=== PATIENT | female | born 1970 | race American Indian/Alaskan Native ===

== ENCOUNTER 2017-06-23 06:37 | Day surgery (SDC) | payer OTHER ==
[2017-06-23] MEDS ORDERED: DIPRIVAN 10 MG/ML IV ONE ×2 (07:56→10:18)
--- NOTE | 2017-06-23 08:32 | Anesthesia Day of Surgery ---
Anesthesia Day of Surgery - Day of Surgery Patient Examined: Yes Patient H&P Reviewed: Yes Patient is NPO: Yes
--- NOTE | 2017-06-23 08:32 | Anesthesia Consultation ---
Anesthesia Consult and Med Hx Date of service: 06/23/17 - Airway Anesthetic Teeth Evaluation: Poor (loose tooth Lower Lt canine) ROM Head & Neck: Adequate Mental/Hyoid Distance: Adequate Mallampati Class: Class II Intubation Access Assessment: Probably Good - Pulmonary Exam CTA: Yes - Cardiac Exam Cardiac Exam: RRR - Pre-Operative Health Status ASA Pre-Surgery Classification: ASA3 Proposed Anesthetic Plan: MAC - Pulmonary Hx Smoking: No Hx Sleep Apnea: No (R/O) - Central Nervous System Hx Psychiatric Problems: No - Hematic Hx Anemia: Yes Hx Sickle Cell Disease: Yes (TRAIT) - Other Systems Hx Alcohol Use: No Hx Substance Use: No Hx Cancer: No Hx Obesity: Yes - Additional Comments Anesthesia Medical History Comments: NAC
[2017-06-23] MEDS ORDERED: PEPCID IV ONE (08:42)
[2017-06-23] MEDS ORDERED: NACL 0.9% 1000 ML 1,000 ML IV SCH (09:00)
--- NOTE | 2017-06-23 10:05 | Discharge Summary ---
Providers - Providers Date of discharge: 06/23/17 Attending physician: HIREN LAZAR Hospitalization Condition: Good Procedures: EGD Disposition: DC-01 TO HOME OR SELFCARE Core Measure Documentation - Palliative Care Palliative Care/ Comfort Measures: Not Applicable - Core Measures Any of the following diagnoses?: none Exam - Physical Exam Narrative exam: UNCHANGED FROM PRE-OP EXAM - Constitutional Vitals: Temp Pulse Resp BP Pulse Ox 99.3 F 85 26 H 126/79 97 06/23/17 08:39 06/23/17 08:39 06/23/17 08:39 06/23/17 08:39 06/23/17 08:39 Plan Activity: no restrictions Diet: regular
--- NOTE | 2017-06-23 10:10 | Operative Report ---
Operative Report Operative Report: OPERATIVE REPORT - EGD DATE 06/23/17 SURGERY: Upper endoscopy. SURGEON: Michelle Coello M.D. SCHO[employer]GE TEACHER: Idalmis Lay MD PRE OP DX: dyspepsia POST OP DX: hiatal hernia TYPE OF ANESTHESIA: MAC. ESTIMATED BLOOD LOSS: None. COMPLICATIONS: None. SPECIMENS REMOVED: None. FINDINGS: 1. Small hiatal hernia. 2. Otherwise, normal esophagus, stomach and first portion of duodenum. INDICATIONS:INDICATION FOR PROCEDURE: Patient is a 46-year-old female with a long history of morbid obesity. She is planned to have a weight loss procedure and is here for preoperative planning EGD. PROCEDURE DETAILS: After consent was reviewed, patient was taken back to the operating room where patient was placed in the left lateral decubitus position and a bite block was placed in the mouth. After a time-out was called, MAC anesthesia was initiated. I then passed the endoscope into her oropharynx, into her esophagus, visualized the entire esophagus, which was all within normal limits. I then visualized the stomach and the first portion of the duodenum and there were no abnormalities I could clearly visualize. I then retroflexed the scope in the stomach and visualized the hiatus and I could see a small hiatal hernia. I then desufflated the stomach and removed the endoscope. Patient tolerated procedure well and was transferred to recovery room in good and stable condition.
[2017-06-23 10:46] VITALS: BP 121/74
--- NOTE | 2017-06-23 11:57 | Post Anesthesia Evaluation ---
- Post Anesthesia Evaluation Patient Participated: Yes Airway Patent: Yes Stable Respiratory Function: Yes Nausea/Vomiting: No Temp > 96.8F: Yes Pain Manageable: Yes Adequeate Hydration: Yes Anesthesia Complications: No Block Receding Appropriately: Not Applicable Patient on Ventilator: No
== END 2017-06-23 06:38 | disposition home or self-care (01) ==
LOC: GIO 06:37
PROVIDERS: ATTEND Surgery
DX: K30 Functional dyspepsia (principal); F41.9 Anxiety disorder, unspecified; K44.9 Diaphragmatic hernia without obstruction or gangrene; I10 Essential (primary) hypertension; K21.9 Gastro-esophageal reflux disease without esophagitis; E66.01 Morbid (severe) obesity due to excess calories; Z68.44 Body mass index [BMI] 60.0-69.9, adult; Z98.890 Other specified postprocedural states; Z98.84 Bariatric surgery status; Z82.49 Family history of ischemic heart disease and other diseases of the circulatory system; Z79.899 Other long term (current) drug therapy
CPT/HCPCS: 43235; 81025; J2704; J7030

== ENCOUNTER 2017-06-26 06:04 | Inpatient (IN) | payer OTHER ==
[~2017-06-26 06:04] MED LIST: TRANSDERM-SCOP TD NR
[2017-06-26] MEDS ORDERED: NACL BACTERIOSTATIC INFILTRATI ONE (06:28)
[2017-06-26] MEDS ORDERED: DIPRIVAN 10 MG/ML IV ONE (06:59)
[2017-06-26] MEDS ORDERED: VERSED IV NR (07:00)
[2017-06-26] MEDS ORDERED: SUBLIMAZE ONE (07:00)
[2017-06-26] MEDS ORDERED: PEPCID IV NR (07:00)
[2017-06-26] MEDS ORDERED: NACL 0.9% 1000 ML 1,000 ML IV SCH (07:00)
[2017-06-26] MEDS ORDERED: XYLOCAINE MPF 2% ONE (07:03)
[2017-06-26] MEDS ORDERED: QUELICIN ONE (07:03)
[2017-06-26] MEDS ORDERED: ZEMURON IV ONE ×2 (07:04→10:21)
[2017-06-26] MEDS ORDERED: ZOFRAN ONE (07:04)
[2017-06-26] MEDS ORDERED: ADRENALIN ONE (07:15)
[2017-06-26] MEDS ORDERED: XYLOCAINE 1% MPF 5 mL ONE (07:15)
[2017-06-26] MEDS ORDERED: MARCAINE 0.5% 30 ML INFILTRATI ONE (07:15)
[2017-06-26 07:16] LABS: Hematocrit 28.3 % (30.3-42.9); Hemoglobin 9.7 gm/dl (10.1-14.3); Mean Corpuscular HGB Conc 34 % (30-34); Mean Corpuscular Hemoglobin 26 pg (28-32); Mean Corpuscular Volume 77 fl (79-97); Platelet Count 312 K/mm3 (140-440); Red Blood Count 3.66 M/mm3 (3.65-5.03); Red Cell Distribution Width 17.4 % (13.2-15.2); White Blood Count 10.9 K/mm3 (4.5-11.0)
--- NOTE | 2017-06-26 07:20 | Anesthesia Day of Surgery ---
Anesthesia Day of Surgery - Day of Surgery Patient Examined: Yes Patient is NPO: Yes Beta Blockers: No (n/a)
[2017-06-26] MEDS ORDERED: ZOFRAN IV PRN ×2 (07:21→08:00)
--- NOTE | 2017-06-26 07:21 | Anesthesia Consultation ---
Anesthesia Consult and Med Hx Date of service: 06/26/17 - Airway Anesthetic Teeth Evaluation: Good ROM Head & Neck: Adequate Mental/Hyoid Distance: Adequate Mallampati Class: Class II Intubation Access Assessment: Probably Good - Pulmonary Exam CTA: Yes - Cardiac Exam Cardiac Exam: RRR - Pre-Operative Health Status ASA Pre-Surgery Classification: ASA3 Proposed Anesthetic Plan: General - Pulmonary Hx Smoking: No Hx Sleep Apnea: No - Cardiovascular System Hx Hypertension: No - Central Nervous System Hx Psychiatric Problems: No - Endocrine Hx Non-Insulin Dependent Diabetes: No - Hematic Hx Anemia: Yes Hx Sickle Cell Disease: Yes (TRAIT) - Other Systems Hx Alcohol Use: No Hx Substance Use: No Hx Cancer: No Hx Obesity: Yes (morbid, BMI 64)
[2017-06-26 07:29] LABS: Alanine Aminotransferase 7 units/L (7-56); Albumin 3.8 g/dL (3.9-5); Albumin/Globulin Ratio 0.9 %; Alkaline Phosphatase 119 units/L (35-129); Anion Gap 19 mmol/L; BUN/Creatinine Ratio 10; Blood Urea Nitrogen 7 mg/dL (7-17); Calcium 8.2 mg/dL (8.4-10.2); Carbon Dioxide 22 mmol/L (22-30); Chloride 100.6 mmol/L (98-107); Glucose 85 mg/dL (65-100); Potassium 3.9 mmol/L (3.6-5.0); Sodium 138 mmol/L (137-145); Total Protein 8.2 g/dL (6.3-8.2)
[2017-06-26 07:35] LABS: Bacteria,Urine 1+ /HPF (Negative); Bilirubin,Urine NEG (Negative); Blood,Urine LG (Negative); Ketones,Urine 80 mg/dL (Negative); Leukocyte Esterase,Urine NEG (Negative); Mucus,Urine FEW /HPF; Nitrite,Urine NEG (Negative)
[2017-06-26] MEDS ORDERED: WATER FOR IRRIG STERILE IR ONE (07:35)
[2017-06-26 07:36] LABS: RBC,Urine > 182.0 /HPF (0.0-6.0)
[2017-06-26] MEDS ORDERED: DILAUDID IV PRN (08:00)
[2017-06-26] MEDS ORDERED: ANCEF/STERILE WATER 2 GM/20 ML IV NR (08:00)
[2017-06-26] MEDS ORDERED: APRESOLINE IV PRN (08:00)
[2017-06-26] MEDS ORDERED: FLAGYL 500 MG/100 ML 500 MG/100 ML BAG IV NR (08:00)
[2017-06-26] MEDS ORDERED: REGLAN IV PRN (08:00)
[2017-06-26] MEDS ORDERED: MYLICON PO PRN (08:00)
[2017-06-26] MEDS ORDERED: LOVENOX SUB-Q NR (08:00)
[2017-06-26] MEDS ORDERED: ANCEF/NS 1 GM/50 ML 1 GM/50 ML BAG IV SCH (08:00)
[2017-06-26] MEDS ORDERED: XYLOCAINE 1% 20 mL INFILTRATI ONE (08:25)
[2017-06-26] MEDS ORDERED: ADRENALIN IV ONE (08:25)
[2017-06-26] MEDS ORDERED: NACL 0.9% IR ONE ×2 (08:25)
[2017-06-26] MEDS ORDERED: MARCAINE 0.5% INFILTRATI ONE (08:25)
[2017-06-26 08:27] LABS: Anisocytosis 1+; Basophils % (Manual) 0 % (0.0-1.8); Blastocytes % (Manual) 0 %; Diff Status Complete; Hypochromasia 1+; Platelet Estimate Consistent w Auto; Schistocytes Rare
[2017-06-26] MEDS ORDERED: NACL 0.9% 1000 ML 1,000 ML ONE (09:13)
[2017-06-26] MEDS ORDERED: DILAUDID ONE (09:22)
[2017-06-26] MEDS ORDERED: REGLAN ONE (10:22)
[2017-06-26] MEDS ORDERED: ROBINUL ONE ×2 (10:22→10:27)
[2017-06-26] MEDS ORDERED: DECADRON ONE (10:22)
[2017-06-26] MEDS ORDERED: NEOSTIGMINE ONE (10:23)
--- NOTE | 2017-06-26 10:37 | Operative Report ---
Operative Report Operative Report: Operative Report DATE OF PROCEDURE: 06/26/17 SURGEON: Michelle Coello M.D. [employer] DESIGN ENGINEER: Idalmis Lay DO, PREOPERATIVE DIAGNOSIS: Morbid obesity. POSTOPERATIVE DIAGNOSES: Morbid obesity PROCEDURES PERFORMED: 1. Laparoscopic gastric bypass. 2. EGD. ANESTHESIA: General endotracheal tube intubation. SPECIMENS: None. ESTIMATED BLOOD LOSS: Less than 10 mL. FINDINGS: Normal anatomy. COMPLICATIONS: None. INDICATION: Ms. Beltrán is a 46-year-old female with history of morbid obesity. She signed informed consent and expressed understanding of risks and benefits. DESCRIPTION OF PROCEDURE: Patient was brought to the OR suite, laid in supine position. Bilateral lower extremity SCDs were placed. General anesthesia was induced via successful endotracheal tube intubation. Patient's abdomen was prepped and draped in sterile fashion. Veress needle was inserted with ease into left upper quadrant. Insufflation to 12-15 was completed. Next using Optiview technique, a 12-mm trocar was placed into the abdominal cavity under direct vision. There was noted to be no gross injury to any intraabdominal structures. at the site of the veress needle insertion and the veress needle was removed. 5 working trocars were placed under direct visualization, 12 mm in the right mid abdomen mid clavicular line and four 5-mm trocars in the right upper quadrant, epigastric, left upper quadrant and left mid abdomen. At this time, the ligament of Treitz identified and followed down approximately 30 cm and the jejunum was transected. The distal segment of jejunum was then traced for approximately 75 cm and a stable [id number] jejunojejunostomy was performed. The common enterotomy was closed with 2 firings of the endoscopic stapler. The mesenteric defect was closed with running Surgidac suture. This anastomosis was found to be patent without kink, obstruction or bleeding. At this time, the patient was placed in steep reverse Trendelenburg position. A liver retractor was placed through the epigastric port to elevate the left lateral lobe of the liver. The crura were dissected and a small hiatal hernia was noted. The hernia was repaired using the endostich via a figure 8 pattern. A small gastric pouch was formed. The Jadyn limb was then brought in an antegastric antecolic fashion and secured with 2 stay sutures to the gastric pouch. After this, the enterotomies were made with Harmonic scalpel, and a [id number] stapled gastrojejunostomy was performed with a mechanical stapler. After this, a 2-layer running closure using Polysorb suture were done, the first being mucosal approximation prior to completion of the first layer. Next an EGD scope beyond the anastomosis to act as a stent. The first layer was completed, the second was then performed. After this, the EGD was retracted slightly. A bowel clamp was placed in a proximal Jadyn limb. The anastomosis was submerged under saline. Via intraluminal EGD insufflation, there was noted be no bubbles in the saline indicating an airtight anastomosis. There was noted to be no obstruction or bleeding intraluminally in the pouch or the anastomosis. At this time, the scope was removed. The saline was aspirated. Tiseel was placed over the anastomosis. All trocars were removed under direct visualization and the abdomen was then desufflated. The skin incisions were closed with 4-0 Monocryl followed by Dermabond dressings. Patient was awoken and taken to recovery in stable condition. All counts were correct.
[2017-06-26] MEDS ORDERED: TORADOL IV NR (10:49)
[2017-06-26] MEDS: DILAUDID IV PRN ×2 (10:50→11:00)
[2017-06-26] MEDS: TORADOL IV SCH ×3 (14:19→22:44)
[2017-06-26] MEDS: LOVENOX SUB-Q SCH (14:20)
[2017-06-26] MEDS: ANCEF/NS 1 GM/50 ML 1 GM/50 ML BAG IV SCH (18:06)
[2017-06-26] MEDS: LACTATED RINGERS 1,000 ML IV SCH (22:43)
[2017-06-27] MEDS: NORCO PO PRN ×2 (01:27→13:45)
[2017-06-27] MEDS: TORADOL IV SCH ×2 (02:00→08:36)
[2017-06-27 02:04] LABS: Basophils % (Auto) 0.1 % (0.0-1.8); Hemoglobin 8.6 gm/dl (10.1-14.3); Mean Corpuscular HGB Conc 33 % (30-34); Mean Corpuscular Hemoglobin 26 pg (28-32); Mean Corpuscular Volume 78 fl (79-97); Platelet Count 302 K/mm3 (140-440); Red Blood Count 3.35 M/mm3 (3.65-5.03); Red Cell Distribution Width 17.6 % (13.2-15.2); White Blood Count 14.6 K/mm3 (4.5-11.0)
[2017-06-27 02:30] LABS: Alanine Aminotransferase 14 units/L (7-56); Albumin 3.5 g/dL (3.9-5); Albumin/Globulin Ratio 0.9 %; Alkaline Phosphatase 105 units/L (35-129); Anion Gap 18 mmol/L; BUN/Creatinine Ratio 10; Blood Urea Nitrogen 7 mg/dL (7-17); Calcium 7.8 mg/dL (8.4-10.2); Carbon Dioxide 18 mmol/L (22-30); Chloride 103.4 mmol/L (98-107); Glucose 98 mg/dL (65-100); Potassium 4.5 mmol/L (3.6-5.0); Sodium 135 mmol/L (137-145); Total Protein 7.4 g/dL (6.3-8.2)
[2017-06-27] MEDS: ANCEF/NS 1 GM/50 ML 1 GM/50 ML BAG IV SCH (02:58)
[2017-06-27] MEDS: LACTATED RINGERS 1,000 ML IV SCH (08:46)
[2017-06-27] MEDS: LOVENOX SUB-Q SCH (10:49)
--- NOTE | 2017-06-27 11:30 | Discharge Summary ---
Providers - Providers Date of Admission: 06/26/17 06:04 Attending physician: HIREN LAZAR Hospitalization Procedures: Laparoscopic gastric bypass Hospital course: 46 y.o. F presented to ambulatory surgery for laparoscopic gastric bypass. She tolerated the procedure well. On POD 1 she tolerated clears and her pain was controlled. She ambulated well. Disposition: DC-01 TO HOME OR SELFCARE Core Measure Documentation - Palliative Care Palliative Care/ Comfort Measures: Not Applicable - Core Measures Any of the following diagnoses?: none Exam - Physical Exam Narrative exam: gen: A+Ox3 cardio: RRR resp: equal rise and fall of chest abd: soft, tender at incision sites. incision sites are cdi. no rebound no guarding ext: no c/c/e - Constitutional Vitals: Temp Pulse Resp BP Pulse Ox 99 F 73 18 117/65 96 06/27/17 09:47 06/27/17 08:20 06/27/17 08:20 06/27/17 08:20 06/27/17 08:20 Plan Activity: other (no lifting >15lbs for 6 weeks. ) Diet: clear liquids (sugar free clears ) Wound: keep clean and dry, other (may shower tomorrow with back to water.) Additional Instructions: follow up for wound check Follow up with: [facility] [Other] - 7 Days
[2017-06-27 13:01] VITALS: BP 131/75
== END 2017-06-27 14:10 | disposition home or self-care (01) | DRG 327 ==
LOC: 3A 06:04 → 3B-SURG 12:22
PROVIDERS: ADMIT Surgery; ATTEND Surgery
PROC: 0D164ZA Bypass Stomach to Jejunum, Percutaneous Endoscopic Approach (ICD-10-PCS; principal; 2017-06-26)
PROC: 0DJ08ZZ Inspection of Upper Intestinal Tract, Via Natural or Artificial Opening Endoscopic (ICD-10-PCS; 2017-06-26)
PROC: 0BQT4ZZ Repair Diaphragm, Percutaneous Endoscopic Approach (ICD-10-PCS; 2017-06-26)
DX: K44.9 Diaphragmatic hernia without obstruction or gangrene (principal); Z68.44 Body mass index [BMI] 60.0-69.9, adult; E66.01 Morbid (severe) obesity due to excess calories; D57.3 Sickle-cell trait
CPT/HCPCS: 36415; 80053; 81001; 81025; 85007; 85025; A4217; C9250; J0171; J0330; J0690; J1100; J1170; J1650; J1885; J2250; J2405; J2704; J2710; J2765; J3010; J7030; J7120